=== PATIENT | female | born 2000 | race Caucasian/White ===

== ENCOUNTER 2023-04-20 12:12 | Outpatient (CLI) | payer OTHER, SELFPAY ==
--- NOTE | 2023-04-20 12:52 | ECG_ITS ---
Measurements Intervals [place] Rate: 61 P: 41 CA: 192 QRS: 78 QRSD: 96 T: 35 QT: 384 QTc: 389 Interpretive Statements SINUS RHYTHM WITH SINUS ARRHYTHMIA NO PREVIOUS ECG AVAILABLE FOR COMPARISON Electronically Signed On 04-21-2023 11:08:57 CDT by Ricardo Tabares M.D.
== END 2023-04-20 12:13 | disposition home or self-care (01) ==
DX: R00.2 Palpitations (principal)
CPT/HCPCS: 93005

== ENCOUNTER 2023-06-14 20:29 | Emergency (ER) | payer OTHER, SELFPAY ==
--- NOTE | ~2023-06-14 | CT_ITS ---
Noncontrast CT scan of the cervical spine Technique: Multiple contiguous axial [address] images of the cervical spine were obtained and rec onstructed in 2D sagittal and coronal planes on the acquisition scanner. Dose reduction technique was used on this scan by utilizing automated exposure control, adjustment of the mA and/or kV according to patient size. The dose-length product (DLP) was 164.83 mGy-cm. Clinical History: Pain Findings: No fractures or dislocations. Unremarkable visualized bony structures. The intervertebral disc spaces are preserved. No prevertebral soft tissue swelling. Impression: No fracture or subluxation of the cervical spine. Reviewed, dictated and finalized at location M. Impression: No fracture or subluxation of the cervical spine.
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
[2023-06-14 20:34] VITALS: BP 84/49; PULSE 86; RESP 19; TEMP 36.2; O2SAT 100
[2023-06-14 20:56] VITALS: PULSE 102; RESP 18; O2SAT 100
[2023-06-14 21:00] VITALS: PULSE 106; RESP 15; O2SAT 100
[2023-06-14 21:01] VITALS: BP 110/75; PULSE 100; RESP 14; O2SAT 100
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
[2023-06-14 21:20] LABS: Basophils Percent Auto 0.3 % (0.2-1.2); Eosinophils Percent Auto 0.5 % (0-4.4); Hematocrit 40.6 % (37.0-47.0); Immature Granulocyte Absolute 0.09 K/mm3 (0.00-0.031); Lymphocytes Absolute Auto 2.24 K/mm3 (0.9-3.2); Lymphocytes Percent Auto 25.7 % (18.3-44.2); Mean Corpuscular Hemoglobin 28.1 pg (26-34); Mean Corpuscular Volume 87.9 fl (80-100); Mean Platelet Volume 9.1 fl (7.4-10.4); Monocytes Absolute Auto 0.7 K/mm3 (0.1-0.6); Monocytes Percent Auto 8.2 % (2.6-8.5); Neutrophils Absolute Auto 5.6 K/mm3 (1.3-6.7); Neutrophils Percent Auto 64.3 % (45.5-73.1); Platelet Count Result 318 k/mm3 (150-375); Red Blood Count 4.62 M/mm3 (4.2-5.4); Red Cell Distribution Width 12.5 % (11.5-14.5); White Blood Count 8.7 K/mm3 (4.5-10.0)
[2023-06-14] MEDS: SODIUM CHLORIDE 0.9% IV 1,000 ML 999 ML IV CONT (21:22)
[2023-06-14 21:31] LABS: Anion Gap 7 mmol/L (8-16); Blood Urea Nitrogen 7 mg/dL (7-17); Calcium 8.7 mg/dL (8.4-10.2); Carbon Dioxide 26 mmol/L (22-30); Chloride 105 mmol/L (98-107); Estimated CRCL calculation 87 ml/min; Estimated Glomerular Filt Rate > 60; Glucose 106 mg/dL (65-110); Potassium 3.7 mmol/L (3.4-5.0); Sodium 138 mmol/L (137-145)
[2023-06-14] MEDS: ACETAMINOPHEN 500 MG TABLET 1000 MG PO (21:53)
[2023-06-14 22:13] LABS: Beta HCG Quantitative < 2.39 mIU/ML
--- NOTE | 2023-06-14 23:29 | PC.NURSE ---
pt care and report to YOHAN Soliman. all questions answered.
[2023-06-15] MEDS: KETOROLAC 30 MG/ML VIAL (*BKC) IV PUSH (00:17)
[2023-06-15 00:22] VITALS: BP 124/82; PULSE 96; RESP 15; TEMP 37.4; O2SAT 100
== END 2023-06-15 00:23 | disposition home or self-care (01) ==
PROVIDERS: Emergency Provider Physician Assistant
DX: S16.1XXA Strain of muscle, fascia and tendon at neck level, initial encounter (principal); S29.019A Strain of muscle and tendon of unspecified wall of thorax, initial encounter; S00.83XA Contusion of other part of head, initial encounter; V49.40XA Driver injured in collision with unspecified motor vehicles in traffic accident, initial encounter
CPT/HCPCS: 36415; 70450; 71260; 72125; 74177; 80048; 84702; 85025; 96361; 96374; 99284; A9270; J1885; J7030; Q9967